=== PATIENT | male | born 2000 | race Caucasian/White ===

== ENCOUNTER 2022-06-30 18:09 | Emergency (ER) | payer OTHER ==
[2022-06-30] MEDS ORDERED: Ketorolac 60 MG/2 ML SDV IM ONE (20:20)
[2022-06-30] MEDS ORDERED: Ondansetron 4 MG Tab.DIS PO ONE (20:20)
== END 2022-06-30 21:02 | disposition home or self-care (01) ==
LOC: MW.ED 18:09
DX: S06.0X0A Concussion without loss of consciousness, initial encounter (principal); W20.8XXA Other cause of strike by thrown, projected or falling object, initial encounter; Y92.89 Other specified places as the place of occurrence of the external cause; Y99.0 Civilian activity done for income or pay
CPT/HCPCS: 70450; 96372; 99283; A9270; J1885

== ENCOUNTER 2022-07-02 21:04 | Emergency (ER) | payer OTHER ==
[2022-07-02 23:13] LABS: CORONAVIRUS COVID-19 NAA NEGATIVE (NEGATIVE); INFLUENZA A NAA NEGATIVE (NEGATIVE); INFLUENZA B NAA NEGATIVE (NEGATIVE); RESPIRATORY SYNCYTIAL VIR NAA NEGATIVE (NEGATIVE)
== END 2022-07-02 23:43 | disposition home or self-care (01) ==
LOC: MW.ED 21:04
DX: F07.81 Postconcussional syndrome (principal); Z20.822 Contact with and (suspected) exposure to COVID-19
CPT/HCPCS: 0241U; 70450; 99284

== ENCOUNTER 2023-12-20 02:35 | Emergency (ER) | payer SELFPAY ==
[2023-12-20] MEDS: Acetaminophen/oxyCODONE 325-5 MG Tab PO ONE (02:53)
[2023-12-20] MEDS: Amoxicillin/Clavulanate K 875-125 MG Tab PO ONE (02:53)
== END 2023-12-20 03:00 | disposition home or self-care (01) ==
LOC: MW.ED 02:35
DX: K01.1 Impacted teeth (principal); Z79.899 Other long term (current) drug therapy; Z75.8 Other problems related to medical facilities and other health care
CPT/HCPCS: 99283; A9270

== ENCOUNTER 2024-02-28 05:18 | Emergency (ER) | payer OTHER ==
[2024-02-28] MEDS: Acetaminophen 500 MG Tab PO ONE (05:44)
[2024-02-28] MEDS: Ibuprofen 400 MG Tab PO ONE (05:44)
== END 2024-02-28 05:58 | disposition home or self-care (01) ==
LOC: MW.ED 05:18
DX: K04.7 Periapical abscess without sinus (principal)
CPT/HCPCS: 99282; A9270-GY

== ENCOUNTER 2024-03-08 00:03 | Emergency (ER) | payer OTHER ==
[2024-03-08 00:45] LABS: APPEARANCE,URINE CLEAR; BILIRUBIN,URINE NEGATIVE (NEGATIVE); COLOR,URINE YELLOW; GLUCOSE,URINE NEGATIVE (NEGATIVE); KETONES,URINE TRACE mg/dL (NEGATIVE); LEUKOCYTE ESTERASE,URINE NEGATIVE (NEGATIVE); NITRITE,URINE NEGATIVE (NEGATIVE); OCCULT BLOOD,URINE NEGATIVE (NEGATIVE); PROTEIN,URINE NEGATIVE (NEGATIVE); UROBILINOGEN,URINE 0.2 EU/dL (<2.0)
[2024-03-08 01:00] LABS: BASOPHILS ABSOLUTE AUTO 0.02 K/uL (0.00-0.20); BASOPHILS PERCENT AUTO 0.3 % (0.0-1.0); EOSINOPHILS ABSOLUTE AUTO 0.08 K/uL (0.00-0.45); EOSINOPHILS PERCENT AUTO 1.2 % (0.0-6.0); HEMATOCRIT 40.4 % (42.0-52.0); HEMOGLOBIN 14.5 g/dL (14.0-18.0); IMMATURE GRAN ABSOLUTE AUTO 0.01 K/uL (0.00-0.05); IMMATURE GRAN PERCENT AUTO 0.2 % (0.0-0.4); LYMPHOCYTES ABSOLUTE AUTO 2.28 K/uL (1.00-4.80); LYMPHOCYTES PERCENT AUTO 34.8 % (24.0-44.0); MEAN CORPUSCULAR HGB CONC 35.9 g/dL (32.0-36.0); MEAN CORPUSCULAR VOLUME 86.3 fL (83.0-99.0); MEAN PLATELET VOLUME 9.4 fL (9.4-12.4); MONOCYTES ABSOLUTE AUTO 0.39 K/uL (0.00-0.80); NEUTROPHILS ABSOLUTE AUTO 3.77 K/uL (1.80-7.70); NEUTROPHILS PERCENT AUTO 57.5 % (41.0-71.0); PLATELET COUNT,PLT 236 K/uL (150-400); RED BLOOD CELL COUNT 4.68 M/uL (4.52-5.90); WHITE BLOOD CELL COUNT,WBC 6.55 K/uL (3.9-11.3)
[2024-03-08] MEDS: Sodium Chloride 0.9% 1,000 ML IV ONE (01:00)
[2024-03-08] MEDS: Sodium Chloride 0.9% 10 ML Syringe FLUSH PRN (01:01)
[2024-03-08] MEDS: Metoclopramide 10 MG/2 ML SDV IVPUSH ONE (01:01)
[2024-03-08] MEDS: Sodium Chloride 0.9% 2.5 ML Syringe FLUSH PRN (01:01)
[2024-03-08 01:33] LABS: A/G RATIO 1.3 (0.9-1.6); ALBUMIN 4.3 g/dL (3.4-5.0); BILIRUBIN TOTAL 0.9 mg/dL (0.2-1.0); CREATININE 1.1 mg/dL (0.8-1.3); EST CRCL DRUG DOSING (CG) 80.95 mL/min; POTASSIUM,K 3.8 mmol/L (3.5-5.1); PROTEIN TOTAL,TP 7.5 g/dL (6.4-8.2)
[2024-03-08 03:50] LABS: C. TRACHOMATIS BY PCR NOT DETECTED; N. GONORRHOEAE BY PCR NOT DETECTED
== END 2024-03-08 02:30 | disposition home or self-care (01) ==
LOC: MW.ED 00:03
DX: R19.7 Diarrhea, unspecified (principal)
CPT/HCPCS: 36415; 74176; 80053; 81003; 83690; 85025; 87491; 87591; 96361; 96374; 99284; J2765; J3490; J7030